=== PATIENT | female | born 1995 ===

== ENCOUNTER 2019-04-26 14:22 | Emergency (ER) | payer OTHER ==
[2019-04-26 14:59] VITALS: BP 116/75
--- NOTE | 2019-04-26 15:55 | UC ---
Respiratory Complaint HPI - HPI Summary HPI Summary: 23 y/o female presents to the urgent care c/o fatigue, GHOTRA, body aches and fever w/ mild nasal congestion, w/ clear PND. She states yesterday she felt chest congestion w/ deep breathing yesterday, but it has resolved today. Pt states she lives in seniority house and thinks she has been exposed to the flu. Body aches is 8/10. Pt has taken Tylenol PO to alleviate symptoms. Fever was low grade and subjective since she doesn't have a thermometer. Pt denies SOB, chest pain, wheezing, Hx of travel, dizziness, abdominal pain, N/V/D. Pt is UTD w/ all vaccines for her age. - History of Current Complaint Chief Complaint: UCRespiratory Stated Complaint: CHEST CONGESTION,FEVER Time Seen by Provider: 04/26/19 15:53 Hx Obtained From: Patient Hx Last Menstrual Period: 2 DAYS AGO Onset/Duration: Gradual Onset, Lasting Days - 1 day, Still Present Timing: Constant Severity Initially: Mild Severity Currently: Moderate Pain Intensity: 8 - body aches and GHOTRA Pain Scale Used: 0-10 Numeric Character: Cough: Nonproductive - mild dry Aggravating Factors: Recumbent Position Alleviating Factors: OTC Meds Associated Signs And Symptoms: Positive: Fever - yesterday and resolved w/ tylenol, URI, Nasal Congestion - mild. Negative: Dyspnea, Wheezing, Hoarseness - Risk Factors Pulmonary Embolism Risk Factors: Negative Cardiac Risk Factors: Negative Pseudomonas Risk Factors: Negative Tuberculosis Risk Factors: Negative - Allergies/Home Medications Allergies/Adverse Reactions: Allergies Allergy/AdvReac Type Severity Reaction Status Date / Time No Known Allergies Allergy Verified 04/26/19 14:51 Home Medications: Home Medications NK [No Home Medications Reported] 04/26/19 [History Confirmed 04/26/19] PMH/Surg Hx/FS Hx/Imm Hx Previously Healthy: Yes - Pt denies PMHX - Surgical History Surgical History: None - Social History Alcohol Use: Occasionally Substance Use Type: None Smoking Status (MU): Never Smoked Tobacco Review of Systems All Other Systems Reviewed And Are Negative: Yes Constitutional: Positive: Fever - subjective low grade fever yesterday at home, Fatigue Skin: Positive: Negative Eyes: Positive: Negative ENT: Positive: Nasal Discharge - clear, Sinus Congestion. Negative: Sore Throat Respiratory: Positive: Negative Cardiovascular: Positive: Negative Gastrointestinal: Positive: Negative Genitourinary: Positive: Negative Motor: Positive: Negative Neurovascular: Positive: Negative Musculoskeletal: Positive: Myalgia Neurological/Mental Status: Positive: Headache Psychological: Positive: Negative Is Patient Immunocompromised?: No Physical Exam - Summary Physical Exam Summary: VITAL SIGNS: Reviewed. GENERAL: Patient is a well developed and nourished female who is sitting comfortably in the examining table. Patient is not in any acute respiratory distress. HEAD AND FACE: No signs of trauma. No ecchymosis, hematomas or skull depressions. No sinus tenderness. EYES: PERRLA, EOMI x 2, No injected conjunctiva, no nystagmus. No photophobia. EARS: Hearing grossly intact. Ear canals and tympanic membranes are within normal limits. MOUTH: Positive pharynx with mild erythema, no exudates, No B/L tonsillar enlargement , no exudate. Uvula in midline. edematous nasal mucosa w/ clear nasal discharge, clear PND NECK: Supple, trachea is midline, Positive anterior cervical lymphadenopathy, no JVD, no carotid bruit, no c-spine tenderness, neck with full ROM. No meningeal signs, no Kernig's or brudzinskis signs. CHEST: Symmetric, no tenderness at palpation LUNGS: Clear to auscultation bilaterally. No wheezing or crackles. CVS: Regular rate and rhythm, S1 and S2 present, no murmurs or gallops appreciated. ABDOMEN: Soft, non-tender. No signs of distention. No rebound no guarding, and no masses palpated. Bowel sounds are normal. EXTREMITIES: FROM in all major joints, no edema, no cyanosis or clubbing. NEURO: Alert and oriented x 3. No acute neurological deficits. Pt follows commands. SKIN: Dry and warm Triage Information Reviewed: Yes Vital Signs: Initial Vital Signs Temp 98.0 F 04/26/19 14:52 Pulse 61 04/26/19 14:52 Resp 18 04/26/19 14:52 BP 116/75 04/26/19 14:52 Pulse Ox 100 04/26/19 14:52 Respiratory Course/Dx - Course Course Of Treatment: 23 y/o female presents to the urgent care c/o fatigue, GHOTRA, body aches and fever w/ mild nasal congestion, w/ clear PND. She states yesterday she felt chest congestion w/ deep breathing yesterday, but it has resolved today. Pt states she lives in seniority house and thinks she has been exposed to the flu. Body aches is 8/10. Pt has taken Tylenol PO to alleviate symptoms. Fever was low grade and subjective since she doesn't have a thermometer. Pt denies SOB, chest pain, wheezing, Hx of travel, dizziness, abdominal pain, N/V/D. Pt is UTD w/ all vaccines for her age. Hx obtained. At this moment pt is hemodynamically stable, no fever and VS: WNL, just w/ mild URI which is now resolving. Rapid strep: negative, Rapid influenza A&B: negative.Pt has not been in contact w/ someone w/ confirm COVID-19 w/in the past 14 days of symptoms onset and there is not Hx of travel. Pt doesnt have a cough or presents w/ symptoms of SOB at this moment, I consider no need to be tested for COVID19. Pt advised to take ibuprofen PO or Tylenol if he develops any pain. Increase hydration and boost his immune system by eating well, taking Vitamin C and avoiding strenuous exercise. Advised to f/u w/ her PCP in 2-3 if symptoms worsen for further management. D/C instructions explained. Pt understood and agreed w/ plan of care. - Differential Dx/Diagnosis Differential Diagnosis/HQI/PQRI: Asthma, Bronchitis, Influenza, Laryngitis, Lower Resp Infection, Sinusitis, Other - strep, COVID Provider Diagnosis: Upper respiratory infection Discharge ED - Sign-Out/Discharge Documenting (check all that apply): Patient Departure - D/C home All imaging exams completed and their final reports reviewed: No Studies - Discharge Plan Condition: Stable Disposition: HOME Patient Education Materials: Upper Respiratory Infection (ED) Referrals: [facility] [place] [facility]IAN REFERRAL [Outside] - 2 Days Additional Instructions: 1- Rapid strep: negative and Influenza A&B: negative 2-Please take ibuprofen PO q6-8hrs prn or alternate w/ Tylenol PO as instructed after meals to alleviate pain and swelling. Increase fluid intake, eat well, rest and avoid strenuous exercise 3-If symptoms do not improve or worsen please return to the urgent care or f/u with your PCP in 2-3 daysfor further evaluation and treatment. - Billing Disposition and Condition Condition: STABLE Disposition: Home
[2019-04-26 16:11] LABS: Influenza A Molecular Negative (Negative); Influenza B Molecular Negative (Negative)
== END 2019-04-26 16:40 | disposition home or self-care (01) ==
LOC: UCEAST 14:22
DX: J06.9 Acute upper respiratory infection, unspecified (principal); R53.83 Other fatigue; R51 Headache
CPT/HCPCS: 87651; 99201; G0463